=== PATIENT | male | born 1975 | race Caucasian/White ===

== ENCOUNTER 2018-10-21 09:02 | Emergency (ER) | payer BC, OTHER ==
[2018-10-21] MEDS ORDERED: Sodium Chloride 0.9% 10 ML Syringe FLUSH PRN (09:42)
--- NOTE | 2018-10-21 10:34 | EDM.PDOC ---
<Priscila Shea - Last Filed: 10/21/18 12:52> ED HPI GENERAL MEDICAL PROBLEM - General Chief Complaint: Chest Pain Stated Complaint: CHEST PAIN LEFT ARM PAIN Time Seen by Provider: 10/21/18 09:17 Source of Information: Reports: Patient History Limitations: Reports: No Limitations - History of Present Illness INITIAL COMMENTS - FREE TEXT/NARRATIVE: Patient is a 43 year old male with no known past medical history who presents today to the ER for evaluation of 4 hours of left sided chest pain. He first noticed the pain at 5:30 this morning while drinking coffee. He describes the pain as "tight" and "feels like there is someone sitting on my chest." He has radiation to his left shoulder and down his left arm, with some tingling in his left arm. He rates the pain as approximately 6-8/10. The patient has some associated shortness of breath. At approximately 8:22 the patient took 4 x 81 mg of aspirin with improvement of his pain. His pain currently is a 4/10. Onset: Today Onset Date: 10/21/18 Onset Time: 05:30 Duration: Hour(s): Location: Reports: Chest, Upper Extremity, Left, Radiates to (Left shoulder) Quality: Reports: Pressure, Other (Tightness) Improves with: Reports: Medication Worsens with: Reports: None Associated Symptoms: Reports: Shortness of Breath. Denies: Diaphoresis, Fever/ Chills, Headaches, Nausea/Vomiting, Rash, Syncope Treatments [employer]: Reports: Aspirin (81 mg x 4 ) Left Upper Chest Pain Score (Numeric/FACES): 6 - Related Data Allergies Allergy/AdvReac Type Severity Reaction Status Date / Time No Known Allergies Allergy Verified 10/21/18 09:13 Home Meds: Home Meds . [No Known Home Meds] 05/28/18 [History] Past Medical History - Past Health History Medical/Surgical History: Denies Medical/Surgical History HEENT History: Reports: None Cardiovascular History: Reports: None Respiratory History: Reports: None Gastrointestinal History: Reports: None Genitourinary History: Reports: None Musculoskeletal History: Reports: None Neurological History: Reports: None Psychiatric History: Reports: None Endocrine/Metabolic History: Reports: None Hematologic History: Reports: None Immunologic History: Reports: None Oncologic (Cancer) History: Reports: None Dermatologic History: Reports: None - Infectious Disease History Infectious Disease History: Reports: None - Past Surgical History Head Surgeries/Procedures: Reports: None Social & Family History - Family History Family Medical History: Noncontributory - Tobacco Use Smoking Status *Q: Current Every Day Smoker Years of Tobacco use: 30 Packs/Tins Daily: 1.5 - Tobacco Core Measures Tobacco Use/Smoking Within Last 30 Days: Yes Smoking Frequency Within Last 30 Days: Reports: Five or More Cigarettes Per Day - Caffeine Use Caffeine Use: Reports: Coffee - Recreational Drug Use Recreational Drug Use: No ED ROS GENERAL - Review of Systems Review Of Systems: See Below Constitutional: Reports: No Symptoms HEENT: Reports: No Symptoms Respiratory: Reports: No Symptoms Cardiovascular: Reports: No Symptoms Endocrine: Reports: No Symptoms GI/Abdominal: Reports: No Symptoms : Reports: No Symptoms Musculoskeletal: Reports: No Symptoms Skin: Reports: No Symptoms Neurological: Reports: No Symptoms Psychiatric: Reports: No Symptoms Hematologic/Lymphatic: Reports: No Symptoms Immunologic: Reports: No Symptoms ED EXAM, GENERAL - Physical Exam Exam: See Below Exam Limited By: No Limitations General Appearance: Alert, WD/WN, No Apparent Distress Ears: Normal External Exam Nose: Normal Inspection Throat/Mouth: Normal Lips, Normal Voice, No Airway Compromise Head: Atraumatic, Normocephalic Neck: Normal Inspection Respiratory/Chest: No Respiratory Distress, Lungs Clear, Normal Breath Sounds, No Accessory Muscle Use, Chest Non-Tender Cardiovascular: Normal Peripheral Pulses, Regular Rate, Rhythm, No Gallop, No Murmur, No Rub GI/Abdominal: Normal Bowel Sounds, Soft, Non-Tender Back Exam: Normal Inspection Extremities: Normal Inspection Neurological: Alert, Oriented, Normal Cognition Psychiatric: Normal Affect, Normal Mood Skin Exam: Warm, Dry, Intact, Normal Color, No Rash EKG INTERPRETATION EKG Date: 10/21/18 Time: 09:21 Rhythm: NSR Rate (Beats/Min): 55 [place]: Normal P-Wave: Present QRS: Normal ST-T: Normal QT: Normal Comparison: Other: (Repeat EKG No changes) Course - Vital Signs Text/Narrative:: IV was inserted and NS given for fluid maintenance. CBC and CMP were drawn, including troponin levels. Plan on observation for 3 hours, with repeat troponin and EKG. If troponin and EKG are within normal, consider outpatient referral for stress test. Last Recorded V/S: Last Vital Signs Temp 96.9 F 09/03/19 09:08 Pulse 55 L 10/21/18 09:08 Resp 16 10/21/18 09:08 BP 127/92 H 10/21/18 09:14 Pulse Ox 100 10/21/18 09:08 - Orders/Labs/Meds Orders: Active Orders 24 hr Category Date Time Status Cardiac Monitoring [RC] . DIRECTED Care 10/21/18 09:42 Active EKG Documentation Completion [RC] ASDIRECTED Care 10/21/18 11:48 Active EKG Documentation Completion [RC] STAT Care 10/21/18 09:44 Active Peripheral IV Care [RC] . DIRECTED Care 10/21/18 09:44 Active Chest 1V Frontal [CR] Stat Exams 10/21/18 09:44 Taken Sodium Chloride 0.9% [Saline Flush] Med 10/21/18 09:42 Active 10 ml FLUSH ASDIRECTED PRN Peripheral IV Insertion Adult [OM.PC] Stat Oth 10/21/18 09:42 Ordered EKG 12 Lead [EK] Stat Ther 10/21/18 11:48 Ordered Medication Orders Sodium Chloride (Saline Flush) 10 ml FLUSH ASDIRECTED PRN PRN Reason: Keep Vein Open Last Admin: 10/21/18 09:49 Dose: 10 ml Labs: Laboratory Tests 10/21/18 10/21/18 10/21/18 Range/Units 09:29 09:29 12:05 WBC 9.11 H (4.23-9.07) K/mm3 RBC 4.92 (4.63-6.08) M/mm3 Hgb 15.3 (13.7-17.5) gm/L Hct 44.5 (40.1-51.0) % MCV 90.4 (79.0-92.2) fl MCH 31.1 (25.7-32.2) pg MCHC 34.4 (32.2-35.5) g/dl RDW Std Deviation 47.3 H (35.1-43.9) fL Plt Count 306 (163-337) K/mm3 MPV 9.1 L (9.4-12.3) fl Neut % (Auto) 60.8 (34.0-67.9) % Lymph % (Auto) 28.9 (21.8-53.1) % [place] % (Auto) 7.6 (5.3-12.2) % Eos % (Auto) 2.0 (0.8-7.0) Baso % (Auto) 0.2 (0.1-1.2) % Neut # (Auto) 5.54 H (1.78-5.38) K/mm3 Lymph # (Auto) 2.63 (1.32-3.57) K/mm3 [place] # (Auto) 0.69 (0.30-0.82) K/mm3 Eos # (Auto) 0.18 (0.04-0.54) K/mm3 Baso # (Auto) 0.02 (0.01-0.08) K/mm3 Sodium 141 (136-145) mEq/L Potassium 4.4 (3.5-5.1) mEq/L Chloride 106 (98-107) mEq/L Carbon Dioxide 25 (21-32) mEq/L Anion Gap 14.4 (5-15) BUN 13 (7-18) mg/dL Creatinine 0.9 (0.7-1.3) mg/dL Est Cr Clr Drug Dosing 108.01 mL/min Estimated GFR (MDRD) > 60 (>60) mL/min BUN/Creatinine Ratio 14.4 (14-18) Glucose 98 (74-106) mg/dL Calcium 9.2 (8.5-10.1) mg/dL Total Bilirubin 0.3 (0.2-1.0) mg/dL AST 20 (15-37) U/L ALT 30 (16-63) U/L Alkaline Phosphatase 61 (46-116) U/L Troponin I < 0.017 < 0.017 (0.00-0.056) ng/mL Total Protein 7.7 (6.4-8.2) g/dl Albumin 4.0 (3.4-5.0) g/dl Globulin 3.7 gm/dL Albumin/Globulin Ratio 1.1 (1-2) Meds: Medications Generic Name Dose Route Start Last Admin Trade Name Freq PRN Reason Stop Dose Admin Sodium Chloride 10 ml 10/21/18 09:42 10/21/18 09:49 Saline Flush FLUSH 10 ml ASDIRECTED PRN Administration Keep Vein Open Departure - Departure Disposition: Home, Self-Care 01 Clinical Impression: Atypical chest pain Referrals: PCP,None [Primary Care Provider] - Herbert Calderon MD [Physician] - 1 Week Forms: ED Department Discharge Additional Instructions: Go home and rest today. Follow up with Dr Calderon within a week. Please return if you are worse. - My Orders Last 24 Hours: My Active Orders 10/21/18 09:42 Cardiac Monitoring [RC] . DIRECTED Sodium Chloride 0.9% [Saline Flush] 10 ml FLUSH ASDIRECTED PRN Peripheral IV Insertion Adult [OM.PC] Stat 10/21/18 09:44 EKG Documentation Completion [RC] STAT Peripheral IV Care [RC] . DIRECTED Chest 1V Frontal [CR] Stat 10/21/18 11:48 EKG Documentation Completion [RC] ASDIRECTED EKG 12 Lead [EK] Stat - Assessment/Plan Last 24 Hours: My Active Orders 10/21/18 09:42 Cardiac Monitoring [RC] . DIRECTED Sodium Chloride 0.9% [Saline Flush] 10 ml FLUSH ASDIRECTED PRN Peripheral IV Insertion Adult [OM.PC] Stat 10/21/18 09:44 EKG Documentation Completion [RC] STAT Peripheral IV Care [RC] . DIRECTED Chest 1V Frontal [CR] Stat 10/21/18 11:48 EKG Documentation Completion [RC] ASDIRECTED EKG 12 Lead [EK] Stat <Dann Jose - Last Filed: 10/21/18 13:17> Course - Re-Assessments/Exams Free Text/Narrative Re-Assessment/Exam: 10/21/18 13:14 I examined the patient myself and I agree with Priscila's assessment and plan. I ordered an IV saline lock, EKG, CXR and labs. He did take some aspirin. His EKG shows a NSR with no acute changes. His labs look good. His troponin is negative. I had him hang around 3 hours and I did a repeat troponin and that is negative. His repeat EKG looks good. Departure - Departure Time of Disposition: 13:20 Condition: Good
--- NOTE | 2018-10-22 06:29 | CR ---
Chest: Portable view of the chest was obtained. Comparison: No prior chest imaging. Heart size and mediastinum are within normal limits for portable technique. Lungs are clear with no acute parenchymal change. Bony structures are grossly intact. Impression: 1. Nothing acute is seen on portable chest x-ray. Diagnostic code #1
== END 2018-10-21 13:25 | disposition home or self-care (01) ==
LOC: JD.ED 09:02
DX: R07.89 Other chest pain (principal); F17.210 Nicotine dependence, cigarettes, uncomplicated
CPT/HCPCS: 36415; 71045; 71045-26; 80053; 84484; 85025; 93005; 99285-25